=== PATIENT | male | born 1980 | race Caucasian/White ===

== ENCOUNTER 2017-08-15 13:38 | Day surgery (SDC) | payer OTHER ==
[2017-08-15] MEDS ORDERED: SOD CHLORIDE 0.9% 1,000 ML IV (14:00)
[2017-08-15] MEDS ORDERED: CEFAZOLIN 1 GM/50 ML (PMX) 50 ML IVPB (14:00)
[2017-08-15 14:29] LABS: ADD MAN DIFF? NO
[2017-08-15 14:32] LABS: BASOPHILS % 0.7 % (0.0-2.0); EOSINOPHILS # 0.2 10^3/ul (0.0-0.5); EOSINOPHILS % 3.2 % (0.0-7.0); HEMOGLOBIN 13.5 g/dl (14.0-18.0); LYMPHOCYTES # 1.6 10^3/ul (0.8-2.9); LYMPHOCYTES % 27.8 % (15.0-51.0); MEAN CORPUSCULAR HEMOGLOBIN 28.1 pg (29.0-33.0); MEAN CORPUSCULAR HGB CONC 33.8 g/dl (32.0-37.0); MEAN CORPUSCULAR VOLUME 83.2 fl (82.0-101.0); MEAN PLATELET VOLUME 10.1 fl (7.4-10.4); MONOCYTE # 0.6 10^3/ul (0.3-0.9); MONOCYTES % 10.6 % (0.0-11.0); NEUTROPHIL # 3.2 10^3/ul (1.6-7.5); NEUTROPHILS % 57.2 % (39.0-77.0); PLATELET COUNT 216 10^3/UL (140-415); RED BLOOD COUNT 4.81 10^6/ul (4.70-6.10); RED CELL DISTRIBUTION WIDTH 12.3 % (11.5-14.5)
[2017-08-15 14:32] LABS: WHITE BLOOD COUNT 5.6 10^3/ul (4.8-10.8)
[2017-08-15 14:50] LABS: ALANINE AMINOTRANSFERASE 71 IU/L (13-69); ALBUMIN 4.1 g/dl (3.3-4.9); ALBUMIN/GLOBULIN RATIO 1.41; ALKALINE PHOSPHATASE 88 IU/L (42-121); ANION GAP 15 (8-16); ASPARTATE AMINO TRANSFERASE 28 IU/L (15-46); BILIRUBIN,INDIRECT 0.4 mg/dl (0-1.1); BILIRUBIN,TOTAL 0.4 mg/dl (0.2-1.3); CARBON DIOXIDE 26 mmol/L (21-31); CHLORIDE 109 mmol/L (97-110); GLUCOSE 121 mg/dl (70-220)
[2017-08-15 14:55] LABS: INR 0.93; PROTIME 12.5 Sec (11.9-14.9)
[2017-08-15 15:01] LABS: BLOOD UREA NITROGEN 12 mg/dl (7-20); CALCIUM 9.6 mg/dl (8.4-10.2); CREATININE 0.64 mg/dl (0.61-1.24); POTASSIUM 4.2 mmol/L (3.5-5.1); SODIUM 146 mmol/L (135-144)
[2017-08-15] MEDS ORDERED: LIDOCAINE 2% (SDV) 5 ML INJ (15:49)
[2017-08-15] MEDS ORDERED: PROPOFOL 20 ML (15:49)
[2017-08-15] MEDS ORDERED: ROCURONIUM 50 MG INJ (15:49)
[2017-08-15] MEDS ORDERED: MIDAZOLAM 1 MG/ML 2 ML INJ (15:49)
[2017-08-15] MEDS ORDERED: ROPIVACAINE 0.2% 20 ML VIAL (15:58)
[2017-08-15] MEDS ORDERED: CEFAZOLIN 1 GM INJ (16:15)
[2017-08-15] MEDS ORDERED: ONDANSETRON 4 MG INJ (16:22)
[2017-08-15] MEDS ORDERED: ACETAMINOPHEN 1000MG/100ML IV 100 ML (16:22)
[2017-08-15] MEDS ORDERED: DEXAMETHASONE 4 MG/ML 1 ML INJ (16:22)
[2017-08-15] MEDS: BUPIVACAINE 0.25%/EPI (SDV) 30 ML INJ (16:27)
[2017-08-15] MEDS ORDERED: KETOROLAC 30 MG INJ (16:56)
[2017-08-15] MEDS ORDERED: HYDROmorphONE (0.2 MG/ML) 10ML SYG IV (17:00)
[2017-08-15 17:20] LABS: PARTIAL THROMBOPLASTIN TIME 24.6 Sec (25.0-35.0)
[2017-08-15] MEDS ORDERED: SUGAMMADEX SODIUM 200 MG/2 ML VIAL IV (17:24)
[2017-08-15] MEDS ORDERED: ONDANSETRON 4 MG INJ IV (17:30)
[2017-08-15] MEDS ORDERED: IBUPROFEN 600 MG TAB PO (17:30)
[2017-08-15] MEDS ORDERED: morphine 2 MG INJ IV (17:30)
[2017-08-15] MEDS ORDERED: HYDROCODONE/APAP (5/325) TAB PO ×2 (17:30)
[2017-08-15] MEDS ORDERED: FAMOTIDINE 20 MG INJ (17:31)
[2017-08-15] MEDS ORDERED: DIPHENHYDRAMINE 50 MG INJ (17:31)
[2017-08-15] MEDS ORDERED: FENTAnyl 50 MCG/ML VIAL (17:33)
[2017-08-15] MEDS: KETOROLAC 30 MG INJ IV (17:54)
[2017-08-15] MEDS: HYDROmorphONE (0.2 MG/ML) 10ML SYG IV (17:57)
== END 2017-08-15 18:58 | disposition home or self-care (01) ==
LOC: SDS 13:38
DX: K80.10 Calculus of gallbladder with chronic cholecystitis without obstruction (principal)
CPT/HCPCS: 47562; 80053; 85025; 85610; 85730; 88304

== ENCOUNTER 2018-11-07 05:59 | Day surgery (SDC) | payer OTHER ==
[2018-11-07] MEDS ORDERED: MIDAZOLAM 1 MG/ML 2 ML INJ (07:16)
[2018-11-07] MEDS ORDERED: SEVOFLURANE 15 MIN (07:16)
[2018-11-07] MEDS ORDERED: BUPIVACAINE 0.5% (SDV) 30 ML INJ (07:18)
[2018-11-07] MEDS ORDERED: PROPOFOL 20 ML (07:20)
[2018-11-07] MEDS ORDERED: LIDOCAINE 2% (SDV) 5 ML INJ (07:21)
[2018-11-07] MEDS ORDERED: ROCURONIUM 50 MG INJ (07:21)
[2018-11-07] MEDS ORDERED: CEFAZOLIN 1 GM INJ (07:54)
[2018-11-07] MEDS ORDERED: DEXAMETHASONE 4 MG/ML 5 ML INJ (08:00)
[2018-11-07] MEDS ORDERED: morphine 10 MG INJ (08:01)
[2018-11-07] MEDS: NEOMYC/POLYMYX/BACIT 30 GM OINT (08:40)
[2018-11-07] MEDS: POLYMYXIN/BACITRACIN 1L IRRIG (08:40)
[2018-11-07] MEDS: ROPIVACAINE 0.5 % 30 ML VIAL (08:40)
[2018-11-07] MEDS ORDERED: LABETALOL HCL 20MG INJ (09:50)
[2018-11-07] MEDS ORDERED: ONDANSETRON 4 MG INJ (10:06)
[2018-11-07] MEDS ORDERED: NEOSTIGMINE 3 MG/3 ML SYRINGE (10:36)
[2018-11-07] MEDS ORDERED: GLYCOPYRROLATE 0.4 MG INJ (10:36)
[2018-11-07] MEDS: KETOROLAC 30 MG INJ IV (10:53)
[2018-11-07] MEDS: morphine 2 MG INJ IV (10:54)
[2018-11-07] MEDS ORDERED: hydrALAzine 20 MG INJ IV (11:00)
[2018-11-07] MEDS ORDERED: ALBUTEROL 0.083% (NEB) 2.5 MG/3 ML AMP HHN (11:00)
[2018-11-07] MEDS ORDERED: MEPERIDINE 25 MG INJ IV (11:00)
[2018-11-07] MEDS ORDERED: METOCLOPRAMIDE 10 MG INJ IV (11:00)
[2018-11-07] MEDS ORDERED: LABETALOL HCL 20MG INJ IV (11:00)
[2018-11-07] MEDS ORDERED: DIPHENHYDRAMINE 50 MG INJ IV (11:00)
[2018-11-07] MEDS ORDERED: KETOROLAC 30 MG INJ IV (11:00)
[2018-11-07] MEDS ORDERED: EPHEDrine 25 MG/5 ML SYG IV (11:00)
[2018-11-07] MEDS ORDERED: FENTAnyl 50 MCG/ML VIAL IV ×2 (11:00)
[2018-11-07] MEDS ORDERED: ONDANSETRON 4 MG INJ IV (11:00)
[2018-11-07] MEDS ORDERED: HYDROmorphONE 1 MG/5 ML IV SYRINGE IV ×3 (11:00)
[2018-11-07] MEDS ORDERED: OXYCODONE/ACETAMINOPHEN (5/325) TAB PO (11:00)
[2018-11-07] MEDS: FENTAnyl 50 MCG/ML VIAL IV (11:08)
[2018-11-07] MEDS: OXYCODONE/ACETAMINOPHEN (5/325) TAB PO (11:34)
[2018-11-07] MEDS: GABAPENTIN 400 MG CAP PO (11:58)
== END 2018-11-07 12:32 | disposition home or self-care (01) ==
LOC: SDS 05:59
DX: S83.512D Sprain of anterior cruciate ligament of left knee, subsequent encounter (principal); S83.282D Other tear of lateral meniscus, current injury, left knee, subsequent encounter; X58.XXXD Exposure to other specified factors, subsequent encounter; M94.262 Chondromalacia, left knee; M23.42 Loose body in knee, left knee; I10 Essential (primary) hypertension
CPT/HCPCS: 29881; 82306